=== PATIENT | female | born 1985 | race Caucasian/White ===

== ENCOUNTER 2017-01-28 17:52 | Emergency (ER) | payer OTHER ==
[2017-01-28 18:06] VITALS: BP 123/78; PULSE 74; RESP 18; TEMP 97.6
--- NOTE | 2017-01-28 18:11 | ED ---
Lower Extremity Injury HPI - General Chief Complaint: Extremity Injury, Lower Stated Complaint: Left Foot Pain/Injury Time Seen by Provider: 01/28/17 18:05 Source: patient, RN notes reviewed Mode of arrival: ambulatory Limitations: no limitations - History of Present Illness Initial Comments: This a 31-year-old female presents emergency department for pain. She states that she has no proximal last few days. Patient states it is much worse when she stands or walks on her left foot. Patient states that she barely feels when she wakes up morning was so she stepped down she has increased pain. Patient states she does wear sandals summertime. She states that she also states her feet for 9 hours a day at work. Patient states that she does large more walking. She denies any swelling, redness, fever or chills. Denies any discoloration. She states the pain radiates from her heel across the arch of her foot. - Related Data Previous Rx's Medication Instructions Recorded Ibuprofen [Motrin] 600 mg PO Q8HR PRN #30 tab 01/28/17 traMADol HCl [Ultram] 50 mg PO Q6H PRN #20 tab 01/28/17 Allergies Allergy/AdvReac Type Severity Reaction Status Date / Time No Known Allergies Allergy Verified 01/28/17 18:02 Review of Systems ROS Statement: Those systems with pertinent positive or pertinent negative responses have been documented in the HPI. ROS Other: All systems not noted in ROS Statement are negative. Past Medical History Past Medical History: No Reported History History of Any Multi-Drug Resistant Organisms: None Reported Past Surgical History: No Surgical Hx Reported Past Psychological History: No Psychological Hx Reported Smoking Status: Current every day smoker Past Alcohol Use History: None Reported Past Drug Use History: None Reported General Exam Limitations: no limitations General appearance: alert, in no apparent distress Head exam: Present: atraumatic, normocephalic, normal inspection Respiratory exam: Present: normal lung sounds bilaterally. Absent: respiratory distress, wheezes, rales, rhonchi, stridor Cardiovascular Exam: Present: regular rate, normal rhythm, normal heart sounds. Absent: systolic murmur, diastolic murmur, rubs, gallop, clicks Extremities exam: Present: other (Left foot there is tenderness along the base of the heel and of the plantar surface over the arch. There is no obvious deformity. Pulses equal bilaterally patient's full range of motion. She has pain when she flexed her toes there is no tenderness to the bony aspect of her ankle.) Course Vital Signs 01/28/17 18:02 Temperature 97.6 F Pulse Rate 74 Respiratory 18 Rate Blood Pressure 123/78 O2 Sat by Pulse 99 Oximetry Medical Decision Making - Medical Decision Making 31-year-old female presented emergency department for foot pain. Patient has no acute fracture injury on x-ray. Patient has plantar fasciitis. Patient we discharged with ibuprofen and tramadol. Return parameters discussed. Disposition Clinical Impression: Plantar fasciitis Disposition: HOME SELF-CARE Condition: Stable Instructions: Plantar Fasciitis (ED) Additional Instructions: Please return to the Emergency Department if symptoms worsen or any other concerns. Prescriptions: Ibuprofen [Motrin] 600 mg PO Q8HR PRN #30 tab PRN Reason: Pain traMADol HCl [Ultram] 50 mg PO Q6H PRN #20 tab PRN Reason: Pain Referrals: None,Stated [Primary Care Provider] - 1-2 days Time of Disposition: 18:49
--- NOTE | 2017-01-28 18:30 | XR ---
PROCEDURE: XR foot complete LT DATE AND TIME: 01/28/2017 6:22 PM REFERRING PHYSICIAN: Jorge Mora CLINICAL INDICATION: PHH, Pain TECHNIQUE: Department protocol. COMPARISON: None FINDINGS: There is no fracture or malalignment. The soft tissues are unremarkable. IMPRESSION: NO ACUTE PROCESS.
== END 2017-01-28 18:55 | disposition home or self-care (01) ==
LOC: EC 17:52
DX: M72.2 Plantar fascial fibromatosis (principal); F17.200 Nicotine dependence, unspecified, uncomplicated
CPT/HCPCS: 99283

== ENCOUNTER 2017-08-21 14:08 | Emergency (ER) | payer OTHER ==
[2017-08-21 14:32] VITALS: TEMP 97.6
[2017-08-21] MEDS ORDERED: IBUPROFEN 800 MG TAB PO STA (15:04)
[2017-08-21] MEDS ORDERED: HYDROcodone/APAP 5-325MG 1 EACH TAB PO STA (15:04)
[2017-08-21] MEDS ORDERED: ONDANSETRON ODT 4 MG TAB PO STA (15:04)
--- NOTE | 2017-08-21 15:06 | ED ---
General Adult HPI - General Chief complaint: Abdominal Pain Stated complaint: Kidney pain Time Seen by Provider: 08/21/17 15:00 Source: patient, RN notes reviewed, old records reviewed Mode of arrival: ambulatory Limitations: no limitations - History of Present Illness Initial comments: This is a 32-year-old female the ER for evaluation. Patient resents today for evaluation of severe left flank pain positive nausea episode of vomiting after eating. Patient has no prior medical history no history of surgeries, has had a positive tubal ligation denies . Was unable to urinate so far today. States she has never had such pain like this was severe and sudden onset it does seem to be improved when she vomits, pain is currently mild at this time she did take Tylenol for pain prior to arrival in the hospital. - Related Data Home Medications Medication Instructions Recorded Confirmed No Known Home Medications [No 08/21/17 08/21/17 Known Home Medications] Allergies Allergy/AdvReac Type Severity Reaction Status Date / Time tomato Allergy Anaphylaxis Verified 08/21/17 15:52 Review of Systems ROS Statement: Those systems with pertinent positive or pertinent negative responses have been documented in the HPI. ROS Other: All systems not noted in ROS Statement are negative. Past Medical History Past Medical History: No Reported History History of Any Multi-Drug Resistant Organisms: None Reported Past Surgical History: No Surgical Hx Reported Past Psychological History: No Psychological Hx Reported Smoking Status: Current every day smoker Past Alcohol Use History: Occasional Past Drug Use History: None Reported General Exam Limitations: no limitations General appearance: alert, in no apparent distress, anxious Head exam: Present: atraumatic, normocephalic, normal inspection Eye exam: Present: normal appearance, PERRL, EOMI. Absent: scleral icterus, conjunctival injection, periorbital swelling ENT exam: Present: normal exam, mucous membranes moist Neck exam: Present: normal inspection. Absent: tenderness, meningismus, lymphadenopathy Respiratory exam: Present: normal lung sounds bilaterally. Absent: respiratory distress, wheezes, rales, rhonchi, stridor Cardiovascular Exam: Present: regular rate, normal rhythm, normal heart sounds. Absent: systolic murmur, diastolic murmur, rubs, gallop, clicks GI/Abdominal exam: Present: soft, normal bowel sounds. Absent: distended, tenderness, guarding, rebound, rigid Extremities exam: Present: normal inspection, full ROM, normal capillary refill. Absent: tenderness, pedal edema, joint swelling, calf tenderness Back exam: Present: normal inspection Neurological exam: Present: alert, oriented X3, CN II-XII intact Psychiatric exam: Present: normal affect, normal mood Skin exam: Present: warm, dry, intact, normal color. Absent: rash Course Vital Signs 08/21/17 14:27 Temperature 97.6 F Pulse Rate 81 Respiratory 20 Rate Blood Pressure 136/78 O2 Sat by Pulse 99 Oximetry - Reevaluation(s) Reevaluation #1: 08/21/17 17:08 Patient has adequate pain control, old findings, questions answered Medical Decision Making - Medical Decision Making 32 female the ER positive kidney stone. Patient has adequate pain control currently. Patient will be discharged home - Lab Data Lab Results 08/21/17 Range/Units 15:28 Urine Color Dark Brown Urine Appearance Turbid H (Clear) Urine pH 5.5 (5.0-8.0) Ur Specific [place] 1.023 (1.001-1.035) Urine Protein 2+ H (Negative) Urine Glucose (UA) Negative (Negative) Urine Ketones Negative (Negative) Urine Blood Large H (Negative) Urine Nitrite Negative (Negative) Urine Bilirubin Negative (Negative) Urine Urobilinogen 3.0 (<2.0) mg/dL Ur Leukocyte Esterase Small H (Negative) Urine RBC >182 H (0-5) /hpf Urine WBC 17 H (0-5) /hpf Ur Squamous Epith Cells 7 H (0-4) /hpf Urine Bacteria Rare H (None) /hpf Urine Mucus Many H (None) /hpf Urine Yeast (Budding) Many H (None) /hpf - Radiology Data Radiology results: report reviewed (CT of pelvis positive kidney stone), image reviewed Disposition Clinical Impression: Left ureteral calculus Disposition: HOME SELF-CARE Condition: Good Instructions: Kidney Stones (ED) Is patient prescribed a controlled substance at d/c from ED?: Yes If prescribed controlled substance>3 days was MAPS reviewed?: No When asked, does pt state using other controlled substances?: No Referrals: None,Stated [Primary Care Provider] - 1-2 days
[2017-08-21 15:59] LABS: Appearance,Urine Turbid (Clear); Bacteria,Urine Rare /hpf; Bilirubin,Urine Negative (Negative); Blood,Urine Large (Negative); Budding Yeast,Urine Many /hpf; Color,Urine Dark Brown; Glucose,Urine (UA) Negative (Negative); Ketones,Urine Negative (Negative); Leukocyte Esterase,Urine Small (Negative); Mucus,Urine Many /hpf; Nitrite,Urine Negative (Negative); PH, Urine 5.5 (5.0-8.0); Protein,Urine 2+ (Negative); RBC,Urine >182 /hpf (0-5); Specific Gravity,Urine 1.023 (1.001-1.035); Squamous Epithelial Cell,Urine 7 /hpf (0-4); WBC,Urine 17 /hpf (0-5)
--- NOTE | 2017-08-21 16:23 | CT ---
EXAMINATION TYPE: CT abdomen pelvis wo con DATE OF EXAM: 08/21/2017 COMPARISON: NONE HISTORY: Left flank pain CT DLP: 961 mGycm Automated exposure control for dose reduction was used. TECHNIQUE: Helical acquisition of images was performed from the lung bases through the pelvis. FINDINGS: LUNG BASES: There is minimal bibasilar subsegmental dependent atelectasis. LIVER/GB: Hepatic parenchyma is diffusely hypoattenuated in comparison to that of the spleen, most co mmonly seen in hepatic steatosis. This finding limits evaluation for hepatic masses. No gross evidenc e of hepatic mass is seen. No intrahepatic biliary ductal dilatation. No cholelithiasis. Focal fatty sparing is seen around the gallbladder fossa. Centrally within the liver there is a more focal hypoat tenuated ill-defined region 3 mL 3.0 cm on image 32 that seen from series 3 image 29 through 33. This could represent more focal fatty infiltration or focal hepatic lesion. PANCREAS: No significant abnormality is seen. SPLEEN: No significant abnormality is seen. ADRENALS: No significant abnormality is seen. KIDNEYS: Curvilinear calcification is noted around a renal cyst on the right midpole measuring 1.3 cm . Focal areas of right sided cortical thinning may relate to sequela of prior injury. There is a 2 mm obstructing calculus at the left proximal ureter just distal to the ureteropelvic junction creating minimal hydronephrosis on the left. No surrounding inflammatory fat stranding is seen at this time. N o calculi within the urinary bladder. FREE AIR: No free air is visualized ADENOPATHY: Limited due to lack of intravenous contrast although there are no greater than 1 cm shor t axis lymph node seen within the abdomen or pelvis. REPRODUCTIVE ORGANS: Small amount of free fluid is seen within the posterior dependent pelvis. URINARY BLADDER: No significant abnormality is seen. OSSEOUS STRUCTURES: Sclerotic focus within the right femur and right iliac bone as well as within th e right hemisacrum and left iliac bone are favored to represent bone islands. BOWEL: Bowel is nondilated although there is submucosal fat deposition within the ascending colon th at may be sequela of chronic inflammatory colitis. Appendix is air-filled and within normal limits. IMPRESSION: 1. 2 MM OBSTRUCTING LEFT PROXIMAL URETERAL CALCULUS RESULTING IN MINIMAL LEFT HYDRONEPHROSIS. 2. SUBMUCOSAL DEPOSITION OF FAT WITHIN THE ASCENDING COLON THAT MAY RELATE TO CHRONIC INFLAMMATORY CO LITIS. 3. MINIMALLY COMPLEX RIGHT CYSTIC RENAL LESION. 4. HEPATIC STEATOSIS. ADDITIONALLY THERE IS MORE FOCAL AREA OF LOW ATTENUATION CENTRALLY WITHIN THE L IVER THAT COULD REPRESENT ADDITIONAL AREA OF FATTY INFILTRATION OR TRUE HEPATIC MASS. CORRELATION WIT H ENHANCED ABDOMINAL THREE-PHASE CT OR MR IS RECOMMENDED.
[2017-08-21 17:20] VITALS: BP 121/71; PULSE 68; RESP 16
== END 2017-08-21 17:20 | disposition home or self-care (01) ==
LOC: EC 14:08
DX: N20.1 Calculus of ureter (principal); F17.200 Nicotine dependence, unspecified, uncomplicated; Z91.018 Allergy to other foods
CPT/HCPCS: 74176; 81001; 87086; 99284

== ENCOUNTER 2018-04-10 17:20 | Emergency (ER) | payer OTHER ==
[2018-04-10 17:42] VITALS: BP 119/83; PULSE 88; RESP 16; TEMP 97.8
[2018-04-10] MEDS ORDERED: PENICILLIN V POTASSIUM 250 MG TAB PO STA (18:14)
--- NOTE | 2018-04-10 18:28 | ED ---
ENT HPI - General Chief complaint: Dental/Oral Stated complaint: DENTAL PAIN Time Seen by Provider: 04/10/18 17:59 Source: patient, RN notes reviewed Mode of arrival: ambulatory Limitations: no limitations - History of Present Illness Initial comments: This is a 33-year-old female who presents to the emergency department with chief complaint of dental pain. Patient reports right upper dental pain for the past few days. She denies fevers or chills. Denies any active drainage. Reports that she feels she has a deep abscess. Denies any ALLERGIES to medications. States that she does not have a dentist follow-up with so will be provided with contact information for the [facility]. - Related Data Home Medications Medication Instructions Recorded Confirmed Naproxen Sodium [Aleve] 220 mg PO DIRECTED 04/10/18 04/10/18 Previous Rx's Medication Instructions Recorded Ibuprofen 600 mg PO Q6HR #30 tablet 04/10/18 Penicillin V Potassium [Pen Vee K] 500 mg PO QID 10 Days tab 04/10/18 Allergies Allergy/AdvReac Type Severity Reaction Status Date / Time tomato Allergy Anaphylaxis Verified 04/10/18 17:42 Review of Systems ROS Statement: Those systems with pertinent positive or pertinent negative responses have been documented in the HPI. ROS Other: All systems not noted in ROS Statement are negative. Past Medical History Past Medical History: No Reported History History of Any Multi-Drug Resistant Organisms: None Reported Past Surgical History: No Surgical Hx Reported Past Psychological History: No Psychological Hx Reported Smoking Status: Current every day smoker Past Alcohol Use History: Occasional Past Drug Use History: Marijuana General Exam - General Exam Comments Initial Comments: General: Awake and alert, well-developed; in no apparent distress. HEENT: Head atraumatic, normocephalic. Pupils are equal, round and reactive to light. Extraocular movements intact. Oropharynx moist without erythema or exudate. Poor dentition throughout with multiple dental caries and missing teeth. There is tenderness along the gumline of tooth #6 and 7. No masses or areas of fluctuance are noted. No active drainage. Neck: Supple. Normal ROM. Cardiovascular: Regular rate and rhythm. No murmurs, rubs or gallops. Chest symmetrical. Respiratory: Lungs clear to auscultation bilaterally. No wheezes, rales or rhonchi. Normal respiratory effort with no use of accessory muscles. Musculoskeletal: Normal ROM, no tenderness bilateral upper and lower extremities. Ambulating normally. Skin: [place], warm and dry. Neurological: Alert and oriented x3. Speech is fluent and answers are appropriate. Psychiatric: Normal mood and affect. No overt signs of depression or anxiety noted. Limitations: no limitations Course Vital Signs 04/10/18 17:38 Temperature 97.8 F Pulse Rate 88 Respiratory 16 Rate Blood Pressure 119/83 O2 Sat by Pulse 100 Oximetry Medical Decision Making - Medical Decision Making This is a 33-year-old female who presents to the emergency department with chief complaint of dental pain. No abscesses are noted on examination. There is tenderness to the gumline and patient has poor dentition throughout. She will be started on a course of penicillin VK and is provided with a prescription for Motrin. She is given contact information for the [facility] dental plan for follow-up. Vitals are stable and patient is in no acute distress. She will be discharged home at this time. She is in agreement and voices understanding. All questions have been answered. Disposition Clinical Impression: Dental caries, Toothache Disposition: HOME SELF-CARE Condition: Good Instructions: Dental Caries (ED), Toothache (ED) Additional Instructions: Please take medications as prescribed. Please follow up with primary care provider within 1-2 days. Return to emergency department if symptoms should worsen or any concerns arise. Please follow up with the [facility] dental clinic. [facility] [place] [address]. Phone number for new patients or for existing patients. Prescriptions: Ibuprofen 600 mg PO Q6HR #30 tablet Penicillin V Potassium [Pen Vee K] 500 mg PO QID 10 Days tab Is patient prescribed a controlled substance at d/c from ED?: No Referrals: None,Stated [Primary Care Provider] - 1-2 days Time of Disposition: 18:28
== END 2018-04-10 19:06 | disposition home or self-care (01) ==
LOC: EC 17:20
DX: K02.9 Dental caries, unspecified (principal); F17.200 Nicotine dependence, unspecified, uncomplicated; Z91.018 Allergy to other foods; Z79.1 Long term (current) use of non-steroidal anti-inflammatories (NSAID)
CPT/HCPCS: 99282

== ENCOUNTER 2018-12-20 19:56 | Emergency (ER) | payer OTHER ==
[2018-12-20 20:01] VITALS: RESP 18
[2018-12-20] MEDS ORDERED: diphenhydrAMINE 50 MG/ML 1 ML VIAL IVP STA (20:19)
[2018-12-20] MEDS ORDERED: KETOROLAC 30 MG/ML 1 ML VIAL IVP STA (20:19)
[2018-12-20] MEDS ORDERED: METOCLOPRAMIDE 5 MG/ML 2 ML VIAL IVP STA (20:19)
[2018-12-20] MEDS ORDERED: SODIUM CHLORIDE 0.9% 1,000 ML IV ONE (20:19)
--- NOTE | 2018-12-20 20:39 | ED ---
Headache HPI - General Chief Complaint: Headache Stated Complaint: Migraine Time Seen by Provider: 12/20/18 20:04 Source: patient, RN notes reviewed Mode of arrival: ambulatory Limitations: no limitations - History of Present Illness Initial Comments: 33-year-old female presents emergency Department chief plan migraine headache. Patient has typical migraine headaches states that she is suffering with them since age 8. She's had several imaging including MRIs, neurology evaluations. Patient states she usually just takes Tylenol Motrin. Patient states that she had some change in vision today which concerned her. Patient has no symptoms of that at this time. Patient's headache is diffuse in nature no fevers or chills no neck pain or neck stiffness. Denies any trauma. Patient does admit to some photophobia and nausea but no vomiting. Denies any extremity weakness. - Related Data Home Medications Medication Instructions Recorded Confirmed Naproxen Sodium [Aleve] 220 mg PO DIRECTED 04/10/18 04/10/18 Previous Rx's Medication Instructions Recorded Ibuprofen 600 mg PO Q6HR #30 tablet 04/10/18 Penicillin V Potassium [Pen Vee K] 500 mg PO QID 10 Days tab 04/10/18 Allergies Allergy/AdvReac Type Severity Reaction Status Date / Time tomato Allergy Anaphylaxis Verified 12/20/18 20:01 Review of Systems ROS Statement: Those systems with pertinent positive or pertinent negative responses have been documented in the HPI. ROS Other: All systems not noted in ROS Statement are negative. Past Medical History Past Medical History: No Reported History Additional Past Medical History / Comment(s): migraines, History of Any Multi-Drug Resistant Organisms: None Reported Past Surgical History: Tubal Ligation Past Psychological History: No Psychological Hx Reported Smoking Status: Current every day smoker Past Alcohol Use History: Occasional Past Drug Use History: Marijuana General Exam Limitations: no limitations General appearance: alert, in no apparent distress Head exam: Present: atraumatic, normocephalic, normal inspection Eye exam: Present: normal appearance, PERRL, EOMI. Absent: scleral icterus, conjunctival injection, periorbital swelling ENT exam: Present: normal exam, normal oropharynx, mucous membranes moist Neck exam: Present: normal inspection, full ROM. Absent: tenderness, meningismus, lymphadenopathy Respiratory exam: Present: normal lung sounds bilaterally. Absent: respiratory distress, wheezes, rales, rhonchi, stridor Cardiovascular Exam: Present: regular rate, normal rhythm, normal heart sounds. Absent: systolic murmur, diastolic murmur, rubs, gallop, clicks Neurological exam: Present: alert, oriented X3, CN II-XII intact, reflexes normal, other (Finger to nose intact bilaterally without over shooting). Absent: motor sensory deficit Skin exam: Present: warm, dry, intact, normal color. Absent: rash Course Vital Signs 12/20/18 19:58 Temperature 98.2 F Pulse Rate 91 Respiratory 18 Rate Blood Pressure 125/87 O2 Sat by Pulse 100 Oximetry Medical Decision Making - Medical Decision Making 33-year-old female presents emergency Department for headache. Patient has chronic history of headaches normal neuro exam. Patient was given migraine cocktail in which symptoms are improved. Patient is requesting to be discharged. Disposition Clinical Impression: Migraine Disposition: HOME SELF-CARE Condition: Stable Instructions (If sedation given, give patient instructions): Acute Headache (ED) Additional Instructions: Please return to the Emergency Department if symptoms worsen or any other concerns. Is patient prescribed a controlled substance at d/c from ED?: No Referrals: None,Stated [Primary Care Provider] - 1-2 days Time of Disposition: 21:32
[2018-12-20 21:50] VITALS: BP 101/65; PULSE 71; TEMP 97.6
== END 2018-12-20 21:50 | disposition home or self-care (01) ==
LOC: EC 19:56
DX: G43.909 Migraine, unspecified, not intractable, without status migrainosus (principal); F17.200 Nicotine dependence, unspecified, uncomplicated; Z79.1 Long term (current) use of non-steroidal anti-inflammatories (NSAID); Z91.018 Allergy to other foods
CPT/HCPCS: 99283; 96374; 96375 ×2; 96361; J1200; J2765; J1885

== ENCOUNTER 2020-01-09 21:50 | Emergency (ER) | payer OTHER ==
[2020-01-09] MEDS ORDERED: ONDANSETRON 4 MG/2 ML VIAL IVP STA (22:22)
[2020-01-09] MEDS ORDERED: SODIUM CHLORIDE 0.9% 1,000 ML IV STA (22:22)
--- NOTE | 2020-01-09 22:31 | ED ---
Abdominal Pain HPI - General Chief Complaint: Abdominal Pain Stated Complaint: Poss Kidney Stones Time Seen by Provider: 01/09/20 22:06 Source: patient Mode of arrival: ambulatory - History of Present Illness Initial Comments: This patient is a 34-year-old woman who presents to be evaluated for which she believes is urinary tract infection. She states that about 3 days ago she noticed she was urinating more frequently and having some dysuria. She tried treating by drinking more fluids than usual and also eating cranberries. She states that over the course of the next few days she noticed she was getting some suprapubic discomfort and then over the course of past 24 hours left flank pain. MD Complaint: abdominal pain, flank pain Onset/Timin -: days(s) Location: suprapubic, L flank Radiation: none Migration to: no migration Severity: moderate Quality: cramping, aching, burning Consistency: colicky Improves With: other (Position) Worsens With: nothing Associated Symptoms: nausea, dysuria - Related Data LMP (females 10-50): 1 month Home Medications Medication Instructions Recorded Confirmed Naproxen Sodium [Aleve] 220 mg PO DIRECTED 04/10/18 04/10/18 Previous Rx's Medication Instructions Recorded Ibuprofen 600 mg PO Q6HR #30 tablet 04/10/18 Penicillin V Potassium [Pen Vee K] 500 mg PO QID 10 Days tab 04/10/18 Cephalexin [Keflex] 500 mg PO Q6HR #28 cap 01/10/20 Allergies Allergy/AdvReac Type Severity Reaction Status Date / Time tomato Allergy Anaphylaxis Verified 12/20/18 20:01 Review of Systems ROS Statement: Those systems with pertinent positive or pertinent negative responses have been documented in the HPI. ROS Other: All systems not noted in ROS Statement are negative. Constitutional: Denies: fever, chills Respiratory: Denies: cough, dyspnea Cardiovascular: Denies: chest pain, palpitations, edema, syncope Gastrointestinal: Reports: abdominal pain, nausea. Denies: vomiting, diarrhea, constipation, melena, hematochezia Genitourinary: Reports: as per HPI, urgency, dysuria, frequency, abnormal menses. Denies: hematuria, discharge Musculoskeletal: Denies: back pain Skin: Denies: rash Neurological: Denies: headache, weakness Past Medical History Past Medical History: No Reported History Additional Past Medical History / Comment(s): migraines, History of Any Multi-Drug Resistant Organisms: None Reported Past Surgical History: Tubal Ligation Past Psychological History: No Psychological Hx Reported Smoking Status: Current every day smoker Past Alcohol Use History: Occasional Past Drug Use History: None Reported General Exam General appearance: alert, in no apparent distress Head exam: Present: atraumatic, normocephalic Respiratory exam: Present: normal lung sounds bilaterally. Absent: respiratory distress, wheezes, rales, rhonchi Cardiovascular Exam: Present: regular rate, normal rhythm, normal heart sounds. Absent: systolic murmur, diastolic murmur, rubs, gallop GI/Abdominal exam: Present: soft, tenderness (supraPubic), normal bowel sounds. Absent: distended, guarding, rebound, rigid, organomegaly, mass, pulsatile mass, hernia Extremities exam: Present: normal inspection, normal capillary refill. Absent: pedal edema, calf tenderness Back exam: Present: normal inspection. Absent: CVA tenderness (R), CVA tenderness (L), vertebral tenderness Neurological exam: Present: alert Skin exam: Present: warm, dry, intact, normal color. Absent: rash Course Vital Signs 01/09/20 22:01 Temperature 99.4 F Pulse Rate 121 H Respiratory 18 Rate Blood Pressure 126/90 O2 Sat by Pulse 98 Oximetry Medical Decision Making - Lab Data Result diagrams: 01/09/20 22:42 01/09/20 22:42 Lab Results 01/09/20 01/09/20 01/09/20 Range/Units 22:42 22:42 22:42 WBC 15.7 H (3.8-10.6) k/uL RBC 5.77 H (3.80-5.40) m/uL Hgb 14.8 (11.4-16.0) gm/dL Hct 47.3 H (34.0-46.0) % MCV 82.0 (80.0-100.0) fL MCH 25.8 (25.0-35.0) pg MCHC 31.4 (31.0-37.0) g/dL RDW 13.1 (11.5-15.5) % Plt Count 298 (150-450) k/uL Neutrophils % 85 % Lymphocytes % 10 % Monocytes % 3 % Eosinophils % 2 % Basophils % 0 % Neutrophils # 13.3 H (1.3-7.7) k/uL Lymphocytes # 1.5 (1.0-4.8) k/uL Monocytes # 0.4 (0-1.0) k/uL Eosinophils # 0.3 (0-0.7) k/uL Basophils # 0.1 (0-0.2) k/uL Sodium (137-145) mmol/L Potassium (3.5-5.1) mmol/L Chloride (98-107) mmol/L Carbon Dioxide (22-30) mmol/L Anion Gap mmol/L BUN (7-17) mg/dL Creatinine (0.52-1.04) mg/dL Est GFR (CKD-EPI)AfAm (>60 ml/min/1.73 sqM) Est GFR (CKD-EPI)NonAf (>60 ml/min/1.73 sqM) Glucose (74-99) mg/dL Calcium (8.4-10.2) mg/dL Total Bilirubin (0.2-1.3) mg/dL AST (14-36) U/L ALT (4-34) U/L Alkaline Phosphatase (38-126) U/L Total Protein (6.3-8.2) g/dL Albumin (3.5-5.0) g/dL Amylase (30-110) U/L Lipase (23-300) U/L Urine Color Yellow Urine Appearance Turbid H (Clear) Urine pH 5.5 (5.0-8.0) Ur Specific Melvin 1.024 (1.001-1.035) Urine Protein 2+ H (Negative) Urine Glucose (UA) 4+ H (Negative) Urine Ketones 1+ H (Negative) Urine Blood Moderate H (Negative) Urine Nitrite Positive H (Negative) Urine Bilirubin Negative (Negative) Urine Urobilinogen <2.0 (<2.0) mg/dL Ur Leukocyte Esterase Large H (Negative) Urine RBC 49 H (0-5) /hpf Urine WBC >182 H (0-5) /hpf Urine WBC Clumps Few H (None) /hpf Ur Squamous Epith Cells 5 H (0-4) /hpf Urine Bacteria Occasional H (None) /hpf Urine Mucus Many H (None) /hpf Urine HCG, Qual Not Detected (Not Detectd) 01/09/20 Range/Units 22:42 WBC (3.8-10.6) k/uL RBC (3.80-5.40) m/uL Hgb (11.4-16.0) gm/dL Hct (34.0-46.0) % MCV (80.0-100.0) fL MCH (25.0-35.0) pg MCHC (31.0-37.0) g/dL RDW (11.5-15.5) % Plt Count (150-450) k/uL Neutrophils % % Lymphocytes % % Monocytes % % Eosinophils % % Basophils % % Neutrophils # (1.3-7.7) k/uL Lymphocytes # (1.0-4.8) k/uL Monocytes # (0-1.0) k/uL Eosinophils # (0-0.7) k/uL Basophils # (0-0.2) k/uL Sodium 135 L (137-145) mmol/L Potassium 4.1 (3.5-5.1) mmol/L Chloride 99 (98-107) mmol/L Carbon Dioxide 22 (22-30) mmol/L Anion Gap 14 mmol/L BUN 11 (7-17) mg/dL Creatinine 0.54 (0.52-1.04) mg/dL Est GFR (CKD-EPI)AfAm >90 (>60 ml/min/1.73 sqM) Est GFR (CKD-EPI)NonAf >90 (>60 ml/min/1.73 sqM) Glucose 287 H (74-99) mg/dL Calcium 9.3 (8.4-10.2) mg/dL Total Bilirubin 0.7 (0.2-1.3) mg/dL AST 22 (14-36) U/L ALT 22 (4-34) U/L Alkaline Phosphatase 97 (38-126) U/L Total Protein 7.7 (6.3-8.2) g/dL Albumin 4.5 (3.5-5.0) g/dL Amylase 36 (30-110) U/L Lipase 44 (23-300) U/L Urine Color Urine Appearance (Clear) Urine pH (5.0-8.0) Ur Specific Melvin (1.001-1.035) Urine Protein (Negative) Urine Glucose (UA) (Negative) Urine Ketones (Negative) Urine Blood (Negative) Urine Nitrite (Negative) Urine Bilirubin (Negative) Urine Urobilinogen (<2.0) mg/dL Ur Leukocyte Esterase (Negative) Urine RBC (0-5) /hpf Urine WBC (0-5) /hpf Urine WBC Clumps (None) /hpf Ur Squamous Epith Cells (0-4) /hpf Urine Bacteria (None) /hpf Urine Mucus (None) /hpf Urine HCG, Qual (Not Detectd) Disposition Clinical Impression: Urinary tract infection Disposition: HOME SELF-CARE Condition: Good Instructions (If sedation given, give patient instructions): Urinary Tract Infection in Women (ED) Prescriptions: Cephalexin [Keflex] 500 mg PO Q6HR #28 cap Is patient prescribed a controlled substance at d/c from ED?: No Referrals: None,Stated [Primary Care Provider] - 1-2 days
[2020-01-09 22:53] LABS: Basophils # (A) 0.1 k/uL (0-0.2); Basophils % (A) 0 %; Eosinophils # (A) 0.3 k/uL (0-0.7); Eosinophils % (A) 2 %; HCT 47.3 % (34.0-46.0); HGB 14.8 gm/dL (11.4-16.0); Lymphocytes # (A) 1.5 k/uL (1.0-4.8); Lymphocytes % (A) 10 %; MCH 25.8 pg (25.0-35.0); MCHC 31.4 g/dL (31.0-37.0); Mean Platelet Volume 7.4; Monocytes # (A) 0.4 k/uL (0-1.0); Monocytes % (A) 3 %; Neutrophils # (A) 13.3 k/uL (1.3-7.7); Neutrophils % (A) 85 %; Platelet Count 298 k/uL (150-450); RBC 5.77 m/uL (3.80-5.40); RDW 13.1 % (11.5-15.5); WBC 15.7 k/uL (3.8-10.6)
[2020-01-09 22:58] LABS: Appearance,Urine Turbid (Clear); Bacteria,Urine Occasional /hpf; Bilirubin,Urine Negative (Negative); Blood,Urine Moderate (Negative); Color,Urine Yellow; Glucose,Urine (UA) 4+ (Negative); Ketones,Urine 1+ (Negative); Leukocyte Esterase,Urine Large (Negative); Mucus,Urine Many /hpf; Nitrite,Urine Positive (Negative); PH, Urine 5.5 (5.0-8.0); Protein,Urine 2+ (Negative); RBC,Urine 49 /hpf (0-5); Squamous Epithelial Cell,Urine 5 /hpf (0-4); Urobilinogen,Urine <2.0 mg/dL (<2.0); WBC,Urine >182 /hpf (0-5)
[2020-01-09 23:00] LABS: Specific Gravity,Urine 1.024 (1.001-1.035)
[2020-01-09 23:17] LABS: AST 22 U/L (14-36); African American GFR (CKD) >90 (>60 ml/min/1.73 sqM); Albumin 4.5 g/dL (3.5-5.0); Alkaline Phosphatase 97 U/L (38-126); Amylase 36 U/L (30-110); Anion Gap 14 mmol/L; Blood Urea Nitrogen 11 mg/dL (7-17); Calcium 9.3 mg/dL (8.4-10.2); Carbon Dioxide 22 mmol/L (22-30); Chloride 99 mmol/L (98-107); Glucose 287 mg/dL (74-99); Non-African American GFR(CKD) >90 (>60 ml/min/1.73 sqM); Potassium 4.1 mmol/L (3.5-5.1); Sodium 135 mmol/L (137-145); Total Bilirubin 0.7 mg/dL (0.2-1.3); Total Protein 7.7 g/dL (6.3-8.2)
[2020-01-09 23:23] LABS: ALT 22 U/L (4-34)
[2020-01-10] MEDS ORDERED: HYDROcodone/APAP 5-325MG 1 EACH TAB PO STA (00:32)
--- NOTE | 2020-01-10 00:40 | CT ---
EXAMINATION TYPE: CT abdomen pelvis wo con DATE OF EXAM: 01/09/2020 COMPARISON: 08/21/2017 HISTORY: LEFT KIDNEY PAIN, BACK PAIN CT DLP: 557.40 mGycm Automated exposure control for dose reduction was used. Images were obtained from the diaphragm to the floor the pelvis with no contrast. Lung bases are clear. There is no pleural effusion. Heart size is normal. There is no pericardial eff usion. Liver spleen pancreas gallbladder appear normal. Bile ducts are not dilated. There is no adrenal mass . Kidneys show normal size and contour. There is no hydronephrosis. There is 8mm linear calcification in the cortex lateral right kidney. There is no retroperitoneal adenopathy. There is slight fullnes s of both the left and right ureters. Bladder distends smoothly. There is no inguinal hernia. There i s no free fluid in the pelvis. Uterus is anteverted. There is no pelvic mass. Lumbar vertebra have no rmal spacing and alignment. There is no compression fracture. Bony pelvis is intact. Hip joints appea r normal. Appendix is not definitely seen. There is no sign of thickened appendix. IMPRESSION: Cortical calcification lateral right kidney unchanged. There is clearing of the small calculus proxim al left ureter compared to old exam. No evidence of ureteral calculus on this exam. There is very sli ght fullness of both the left and right ureter consistent with previous obstruction.
[2020-01-10 01:01] VITALS: BP 111/86; PULSE 117; RESP 16; TEMP 100.3
[2020-01-10] MEDS ORDERED: IBUPROFEN 600 MG TAB PO STA (01:01)
== END 2020-01-10 01:07 | disposition home or self-care (01) ==
LOC: EC 21:50
DX: N39.0 Urinary tract infection, site not specified (principal); F17.200 Nicotine dependence, unspecified, uncomplicated; Z91.018 Allergy to other foods; Z98.51 Tubal ligation status
CPT/HCPCS: 36415; 80053; 82150; 83690; 85025; 81001; 81025; 74176; 99284; 96365; 96375; 96361; J2405; J0696